=== PATIENT | male | born 1955 | race Caucasian/White ===

== ENCOUNTER → 2020-05-11 | Outpatient (CLI) | payer OTHER ==
[~2020-05-11] MED LIST: HYDROCODON-ACE1 EAC5 PO; [UNRECOGNIZED DRUG - OTHER] PO
== END ==
LOC: PET 12:49
PROVIDERS: ATTEND Surgery Vascular Surgery
DX: J90 Pleural effusion, not elsewhere classified (principal); R91.8 Other nonspecific abnormal finding of lung field; J98.4 Other disorders of lung; I31.3 Pericardial effusion (noninflammatory)

== ENCOUNTER → 2020-05-13 | Outpatient (CLI) | payer OTHER | LOC: LAB | PROVIDERS: ATTEND Pediatrics | DX: Z01.812 Encounter for preprocedural laboratory examination (principal); Z20.828 Contact with and (suspected) exposure to other viral communicable diseases ==

== ENCOUNTER → 2020-05-17 | Outpatient (CLI) | payer OTHER ==
[~2020-05-17] VITALS: Ht 157.5 cm; Wt 54.4 kg
[2020-05-17 09:06] VITALS: BP 141/88
--- NOTE | 2020-05-18 16:06 | PATH ---
[facility] [address] [place] [address] PATHOLOGY RPT PROCEDURE Name: BRYAN RADER Room #: REG HUSSAIN Bailey.#: [id number] Admission: 05/17/20 Date of : 55 Discharge: Report #: [id number] Path Case #: [id number] Note [facility] Accession Number: [id number] TESTS RESULT FLAG UNITS REF RANGE LAB Clinician Provided Cytology Information No. of containers..01 Other (Miscellaneous) Source: BAL/WASH LT SUBCARIN DIAGNOSIS: 02 BAL/WASH LT SUBCARIN NEGATIVE FOR MALIGNANT CELLS. REACTIVE BRONCHIAL CELLS ARE PRESENT. PULMONARY MACROPHAGES (DUST CELLS) ARE PRESENT. Pathologist ICD10: 02 R91.8 Signed out by: 02 Danielle Fair MD, Pathologist NPI- [id number] Performed by: 01 Ania Medrano Correctional Supply Supervisor ([facility]) Gross description: 01 20ML, RED, 1 TP /LCS 05/17/2020 1836 Local FLAG LEGEND: L-Low Normal,H-High Normal,LL-Alert Low,HH-Alert High <-Panic Low,>-Panic High,A-Abnormal,AA-Critical Abnormal Performed at: [address] [place] [address] Eloy Ulrich MD, [address] [address] Danielle Fair MD, Performed at: [address], [place], [place] [id number] MD Eloy Ulrich MD Phone: [phone]
--- NOTE | 2020-05-19 13:08 | PATH ---
[facility] [place] [address] PATHOLOGY RPT PROCEDURE Name: AZAR ADAIR Room #: REG [facility] MNoé.#: [id number] Admission: 05/17/20 Date of : 55 Discharge: Report #: [id number] Path Case #: [id number] [facility] Accession Number: [id number] . 01 Material submitted: . PART A: lung - LEFT HILAR NEEDLE BIOPSY. Modifiers: left PART B: lung - LEFT SUBCARINAL TBNA NEEDLE BIOPSY. Modifiers: left . 01 Clinical history: . DYSPNEA, UNSPECIFIED TYPE LUNG MASS . 02 Diagnosis: A. 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 - Specimen predominantly (80%) comprised of blood. - Two fragments of benign bronchial tissue with moderate chronic inflammation and metaplastic changes present within the background. . B. 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 - Fragments of benign lymphoid tissue present within the background. - Fragments of benign bronchial tissue without any malignancy or dysplasia. LBQ 05/19/2020 1153 Local . 02 Comment: Properly controlled immunohistochemical stains are performed on blocks A1 and B1. . P63 on A1 - Strong nuclear reactivity present consistent with the diagnosis rendered TTF-1 on block A1 - No reactivity present within the lesional material TTF-1 on block B1 - No reactivity present within the lymphoid aggregate Synaptophysin on block B1 - Scant non-specific reactivity identified within the epithelium (squamous cell carcinoma in situ fragment) and no reactivity identified within the lymphoid tissue CD45 on block B1 - Strong reactivity within the lymphoid tissue AE1/AE3 on block B1 - Strong membranous reactivity within the squamous cell carcinoma in situ fragment and no reactivity within the lymphoid tissue fragment. . Drywall Stripper Helper slide (slide A1-5) was co-reviewed by Dr. Consuelo Jamison who concurs with my diagnosis. Findings of this case were conveyed to Dr. Song at approximately 2:15 p.m. on 05/18/2020. (IUV/db; 05/19/2020) . 02 Electronically signed: . [address] [address] PATHOLOGY RPT PROCEDURE Name: AZAR ADAIR Room #: REG CLI Shauna#: [id number] Admission: 05/17/20 Date of : 55 Discharge: Report #: [id number] Path Case #: [id number] Danielle U Vadlamani, MD, Pathologist NPI- [id number] . 01 Gross description: . A. The specimen is received in formalin, labeled "Azar Adair, left hilar TBNA needle". Received is a moderate amount of blood coagulum admixed with pale santiago soft tissue measuring 1.8 x 0.9 x 0.1 cm in aggregate dimensions. The specimen is filtered and entirely submitted in cassette A1. . B. The specimen is received in formalin, labeled "Azar Adair, left subcarinal TBNA needle". Received are multiple friable pale santiago tissue measuring 0.4 x 0.3 x 0.1 cm in aggregate dimensions. The specimen is filtered and entirely spitted in cassette B1. (CAA; 05/17/2020) QAC/QAC 05/19/2020 1137 Local . 02 Pathologist provided ICD-10: C34.02, D02.22, J98.4 . 02 CPT . 282113, 804302, I53031, L85316 Specimen Comment: A courtesy copy of this report has been sent to [phone] Specimen Comment: [phone] Specimen Comment: Report sent to / DR EMERSON Performed at: [address] [facility], [place], [place] [id number] MD Eloy Ulrich MD Phone: [phone] Performed at: [address] [facility] [id number] MD Danielle Fair MD Phone: [phone]
--- NOTE | 2020-05-19 16:06 | PATH ---
[facility] [address] [place] [address] PATHOLOGY RPT PROCEDURE Name: BRYAN RADER Room #: REG HUSSAIN Bailey.#: [id number] Admission: 05/17/20 Date of : 55 Discharge: Report #: [id number] Path Case #: [id number] Note [facility] Accession Number: [id number] TESTS RESULT FLAG UNITS REF RANGE LAB Clinician Provided Cytology Information No. of containers..01 Slide Source: LT TBNA SUBCARINAL DIAGNOSIS: 02 LT TBNA SUBCARINAL NEGATIVE FOR MALIGNANT CELLS. REACTIVE BRONCHIAL CELLS ARE PRESENT. PULMONARY MACROPHAGES (DUST CELLS) ARE PRESENT. SCANT CELLULARITY. Pathologist ICD10: 02 R91.8 Signed out by: Danielle Fair MD, Pathologist NPI- [id number] Performed by: Meghna Prakash, Fork Assembler ([facility]) Gross description: 2 FX /LCS 05/18/2020 1124 Local FLAG LEGEND: L-Low Normal,H-High Normal,LL-Alert Low,HH-Alert High <-Panic Low,>-Panic High,A-Abnormal,AA-Critical Abnormal Performed at: [address] [place] [address] Eloy Ulrich MD, [address] [address] Danielle Fair MD, Specimen Comment: A courtesy copy of this report has been sent to [phone] Specimen Comment: [phone] Specimen Comment: Report sent to / DR EMERSON Performed at: [address], [place], [place] [id number] MD Eloy Ulrich MD Phone: [phone]
== END | disposition home or self-care (01) ==
LOC: PUL 08:17
PROVIDERS: ATTEND Pediatrics
DX: R91.8 Other nonspecific abnormal finding of lung field (principal); C34.02 Malignant neoplasm of left main bronchus; D02.22 Carcinoma in situ of left bronchus and lung; J98.4 Other disorders of lung; Z87.891 Personal history of nicotine dependence; Z85.118 Personal history of other malignant neoplasm of bronchus and lung; Z98.890 Other specified postprocedural states; Z79.899 Other long term (current) drug therapy
CPT/HCPCS: 50010; 62110; 62900; 70005